=== PATIENT | female | born 1980 | race Caucasian/White ===

== ENCOUNTER 2020-04-29 07:41 | Inpatient (IN) | payer BC, SELFPAY ==
[2020-04-29] MEDS ORDERED: Benzocaine-Menthol 82.5 ML CAN TOP PRN (09:08)
[2020-04-29] MEDS ORDERED: diphenhydrAMINE 25 MG CAP PO PRN (09:08)
[2020-04-29] MEDS ORDERED: Methylergonovine 0.2 MG/ML VIAL IM PRN (09:08)
[2020-04-29] MEDS ORDERED: Preparation H Ointment 28 GM TUBE PR PRN (09:08)
[2020-04-29] MEDS ORDERED: HYDROcodone/Acetaminophen 5/325 mg Tablet PO PRN (09:08)
[2020-04-29] MEDS ORDERED: Ondansetron PF 4 MG/2 ML Vial IVP PRN (09:08)
[2020-04-29] MEDS ORDERED: Milk Of Magnesia 30 ML UDCUP PO PRN (09:08)
[2020-04-29] MEDS ORDERED: Promethazine HCl 25 MG/ML VIAL IM PRN (09:08)
[2020-04-29] MEDS ORDERED: Misoprostol 200 MCG TAB VAG PRN (09:08)
[2020-04-29] MEDS ORDERED: Lanolin Ointment 7 GM TUBE TOP PRN (09:08)
[2020-04-29] MEDS ORDERED: hydrALAZINE 20 MG/ML VIAL SLOW IVP PRN (09:08)
[2020-04-29] MEDS ORDERED: Bisacodyl 10 MG SUPP PR PRN (09:08)
[2020-04-29] MEDS ORDERED: NS / Oxytocin 40 units/1000ml 1,000 ML IV SCH (09:15)
[2020-04-29 09:29] VITALS: BMI 34.4
--- NOTE | 2020-04-29 09:39 | PDOC.LDHP ---
Labor and Delivery H&P Chief complaint: other (precipitous delivery) HPI: 39 y/o at 39w4d, patient of Trang Dodge, transferred from [facility] after precipitously delivering a viable there with a reported nuchal cord x1. Upon arrival, placenta remained undelivered, and infant still connected to umbilical cord (per patient request). Only complaint upon arrival is cramping, otherwise doing well. ROS neg for HEENT, CV, pulm, GI, , neuro, psych, skin, musculoskeletal, or co nstitutional symptoms other than mentioned above. OB History Details: 1 prior , 9+ lbs, preeclampsia Current complications: none Past Medical History: None Current medications: pre- vitamins, other (ASA 81mg, [place] 3s, Vitamin C) Previous surgical history: other (implants) Allergies/Adverse Reactions: Allergies Allergy/AdvReac Type Severity Reaction Status Date / Time azithromycin Allergy Verified 04/29/20 09:24 Social history: none - Physical Exam Vital signs reviewed and normal: yes General: NAD, resting Lungs: nonlabored breathing Abdomen: gravid Extremeties: no edema - OB Labs Blood type: B RH: positive Antibody Screen: negative HIV: negative RPR: negative HEPSAg: negative 1 hour GCT: negative GBS: negative Rubella: immune - Assessment S/p , placenta undelivered - Plan Plan: admit to L&D, informed consent obtained -: Will deliver placenta, assess perineum for lacerations. Routine PP care.
[2020-04-29 10:16] LABS: Hemoglobin 11.8 g/dL (12.0-16.0); Mean Corpuscular Hemoglobin 30.4 pg (27.0-31.0); Mean Corpuscular Volume 89.4 fL (78.0-98.0); Mean Platelet Volume 9.2 fL (7.4-10.4); Platelet Count 240 thou/uL (130-400); Red Blood Cell (RBC) Count 3.88 mill/uL (4.20-5.40); White Blood Cell (WBC) Count 26.5 thou/uL (4.8-10.8)
[2020-04-29] MEDS: Ibuprofen 800 MG TAB PO SCH ×2 (10:27→18:10)
[2020-04-29 10:47] LABS: Syphilis Antibody Nonreactive (Nonreactive); Syphilis Antibody Index 0.02 S/CO (<1.00 Non-Reactive)
[2020-04-29 10:48] LABS: HBSAg Index 0.16 S/CO (0-0.99); Hep B Surf Ag Non-Reactive S/CO (NonReactive)
[2020-04-29] MEDS ORDERED: Ibuprofen 800 MG TAB PO SCH (14:00)
[2020-04-29] MEDS: Ferrous Sulfate 325 MG TAB PO SCH (15:48)
[2020-04-29 16:26] LABS: SARS-CoV-2 MS2 Positive; SARS-CoV-2 N Gene Negative; SARS-CoV-2 S Gene Negative; SARS-CoV-2 by NAA Not Detected (NotDetected); SARS-CoV-2 orf1ab Negative
[2020-04-29] MEDS: Acetaminophen 500 MG TAB PO PRN ×2 (17:13→23:11)
--- NOTE | 2020-04-30 02:02 | DN ---
DATE OF PROCEDURE: 04/29/2020 The patient precipitously delivered at [facility] and was transferred here for the delivery of placenta and assessment as well as care. Upon arrival, the placenta was still undelivered and the cord had not been cut. The cord was noted to be not pulsating anymore. Per the patient's request, the cord was clamped and cut. The placenta delivered spontaneously with minimal bleeding. The perineum was examined, and the patient was found to have a second-degree laceration. I recommended repair; however, the patient declined at this time. We discussed that if it continues to bleed, that she may need suture and she agreed, but at this time would like to have no repair done. Estimated blood loss, 50 mL. Job ID: [id number]
[2020-04-30] MEDS: Ibuprofen 800 MG TAB PO SCH ×4 (02:07→21:50)
[2020-04-30] MEDS: Ferrous Sulfate 325 MG TAB PO SCH ×2 (07:36→18:32)
[2020-04-30] MEDS: Prenatal Vitamin 1 TAB PO SCH (08:31)
[2020-04-30] MEDS: Acetaminophen 500 MG TAB PO PRN ×2 (08:32→14:45)
[2020-04-30] MEDS: Docusate Calcium (SURFAK) 240 MG CAP PO SCH ×2 (08:32→21:50)
[2020-04-30] MEDS ORDERED: Adacel (T-DAP) 0.5 ML SYRINGE IM ONE (09:08)
[2020-04-30] MEDS ORDERED: Measles/Mumps/Rubella 10 MCG/0.5 ML VIAL SC ONE (09:08)
[2020-04-30] MEDS ORDERED: Varicella virus, LIVE 0.5 ML VIAL SC ONE (09:08)
--- NOTE | 2020-04-30 18:54 | PRG ---
DATE OF SERVICE: 04/30/2020 SUBJECTIVE: The patient is day 1, status post a precipitous delivery at an outside emergency room. She reports that she is tolerating p.o., voiding on her own, having decreased lochia and good pain control. OBJECTIVE: VITAL SIGNS: This afternoon, blood pressure is 107/58, temperature 98.3, pulse of 91, respiratory rate of 20, saturating 97% on room air. GENERAL: She appears to be in no acute distress. She is standing with her baby at time of evaluation. ASSESSMENT AND PLAN: The patient is day 1, status post term spontaneous vaginal delivery. The baby is under bili lights. Mom will continue care until tomorrow unless otherwise indicated. Job ID: [id number]
[2020-05-01] MEDS: Acetaminophen 500 MG TAB PO PRN (06:25)
[2020-05-01] MEDS: Ibuprofen 800 MG TAB PO SCH ×2 (08:01→16:44)
[2020-05-01] MEDS: Docusate Calcium (SURFAK) 240 MG CAP PO SCH (08:01)
[2020-05-01] MEDS: Ferrous Sulfate 325 MG TAB PO SCH ×2 (08:01→16:45)
[2020-05-01] MEDS: Prenatal Vitamin 1 TAB PO SCH (08:02)
[2020-05-01 08:39] VITALS: BP 118/58; TEMP 97.9
== END 2020-05-01 19:03 | disposition home or self-care (01) | DRG 769 ==
LOC: L&D 09:00 → 3SW 12:27
PROVIDERS: ADMIT Obstetrics & Gynecology; ATTEND Obstetrics & Gynecology
PROC: 0KQM0ZZ Repair Perineum Muscle, Open Approach (ICD-10-PCS; principal; 2020-04-29)
DX: O99.893 Other specified diseases and conditions complicating puerperium (principal); O70.1 Second degree perineal laceration during delivery; Z20.828 Contact with and (suspected) exposure to other viral communicable diseases; Z88.1 Allergy status to other antibiotic agents
CPT/HCPCS: 36415; 85027; 86780; 86850; 86900; 86901; 87340; 87635; U0003